=== PATIENT | female | born 1980 | race Two or more races ===

== ENCOUNTER 2022-04-14 21:46 | Observation (INO) ==
--- NOTE | 2022-04-14 22:19 | Emergency Department Note ---
Impression & Plan Chest pain, CAD (coronary artery disease) ED Provider Note NAME: DHRUV ARMANDO AGE: 41 SEX: F : 1980 ARRIVES VIA: Walk-In INFORMANT: Patient ED PROVIDER(S): Vern Edwards DO CHIEF COMPLAINT: Chest pain HPI: Patient is a 41-year-old female who presents ER for chest pain. She notes she was sitting in the car and started getting pinching pain in her left upper chest. She denies any shortness of breath. No arm or jaw pain. She notes this feels similar to her previous MD which was back in December 2021 where she had a stent placed in her LAD. She was on Brilinta and then switched to Plavix which she has been taking. Her pain has abated but was waxing and waning when present. It started at 745 and lasted for about half hour. She notes no belly pain, nausea, vomiting, or diarrhea. No dysuria, urgency, or frequency. She questions if this is musculoskeletal but notes that did not change with twisting, turning, bending, or movement or pushing on her chest wall. He did take multiple doses of Lopressor to slow her heart rate down. ROS: See above HPI for pertinent positives & negatives. A total of 10 systems reviewed and were otherwise negative. PAST MEDICAL HISTORY:See Below PAST SURGICAL HISTORY:See Below FAMILY HISTORY:See Below SOCIAL HISTORY:See Below HOME MEDICATIONS:See Below ALLERGIES:See Below VITALS:See Below PHYSICAL EXAMINATION: GENERAL: Sitting up in bed, alert, well appearing, well nourished, no distress, non-toxic EYE EXAM: normal conjunctiva. OROPHARYNX: no exudate, no erythema, lips, buccal mucosa, and tongue normal and mucous membranes are moist NECK: supple, no nuchal rigidity, no adenopathy, non-tender LUNGS: Clear to auscultation. Normal chest wall mechanics HEART: no murmurs, S1 normal and S2 normal ABDOMEN: abdomen soft, non-tender, normo-active bowel sounds, no masses, no rebound or guarding. UPPER EXTREMITIES: upper extremities are grossly normal. LOWER EXTREMITIES: No pitting edema. Calves are equal bilateral. NEURO EXAM: Normal sensorium, cranial nerves II-XII grossly intact, normal speech, no gross weakness of arms, no gross weakness of legs. MEDICAL DECISION MAKING: Patient is a 41-year-old female who presents the ER with a past medical history of CAD and a stent placed in her LAD secondary to an MD back in December for chest pain over the left chest. Symptoms were waxing and waning for about 1/2-hour and have resolved. She notes this felt similar to her previous MD. Labs show no significant leukocytosis or anemia. BMP with a mild hyponatremia at 134. LFTs bilirubin was unremarkable. Lipase normal. Troponin negative. COVID- negative. Chest x-ray was clean. Patient was updated bedside. She was given aspirin. She currently pain-free. Due to her history of a recent MD with a stent in her LAD Case was discussed with Fartun Navarro for further evaluation. Triage Nursing notes reviewed. Limited review of prior medical records performed Vital Signs: reviewed and remarkable for HTN Differential diagnosis: Cardiac ischemia, aortic dissection, pulmonary embolism, pneumothorax, pneumonia, pericarditis, myocarditis, esophageal rupture, GERD, cholecystitis, pancreatitis, musculoskeletal, as well as other pathologies. ER treatment provided: See below Diagnostics interpreted by me: ECG: Sinus rhythm rate 85 Normal axis No PVCs QTC 435 Cardiac Monitoring: An order was placed for continuous cardiac monitoring. The monitor shows a rate of 80 with sinus rhythm. Laboratory studies: As stated above and show below. Imaging studies: Portable AP upright 1 view of the chest was unremarkable Consultation(s): none Procedures: none Critical Care: None Past Med/Surg History Social History Smoking Status: Never smoker Feels Safe at Home: Yes Allergies Allergies Allergy/AdvReac Type Severity Reaction Status Date / Time levonorgestrel [From Mirena] Allergy Intermediate Hives Verified 04/14/22 23:39 cherries Allergy Mild itchy Uncoded 04/14/22 23:39 mouth and throat Home Meds Home Medications Medication Instructions Recorded Confirmed aspirin 81 mg tablet,delayed 81 mg PO QAM 04/14/22 04/14/22 release clopidogrel 75 mg tablet 75 mg PO QAM 04/14/22 04/14/22 metoprolol succinate 25 mg 25 mg PO DAILY 04/14/22 04/14/22 tablet,extended release 24 hr rosuvastatin 20 mg tablet 20 mg PO QPM 04/14/22 04/14/22 Results & Data (ED) Vital Signs Vital Signs - 24 hr 04/14/22 21:51 04/14/22 22:43 04/14/22 22:34 Temperature 36.8 C Temperature Source Temporal Artery Scan Pulse Rate 80 77 Pulse Rate from SpO2 Sensor 78 Respiratory Rate 20 18 22 Respiratory Effort / Characteristics Non-Labored Spontaneous Respiratory Depth Normal Blood Pressure 160/106 H 135/76 Blood Pressure Mean 124 95 Blood Pressure Position Lying Pulse Oximetry 100 99 100 Oxygen Delivery Method Room Air Room Air Room Air Sepsis Recent Fever Within 48 Hours No Sepsis New/Unexplained Change in Mental Status No Sepsis Action Taken by Nursing No Action Required Laboratory Data Result diagrams: 04/14/22 22:23 04/14/22 22:23 Lab Results 04/14/22 04/14/22 04/14/22 Range/Units 22:23 22:23 22:25 WBC 10.58 (4.8-10.8) K/ul RBC 4.34 (3.93-5.22) M/uL Hgb 13.2 (12.0-16.0) g/dl Hct 38.6 (34.1-44.9) % MCV 88.9 (80.0-100.0) fL MCH 30.4 (25.0-34.0) pg MCHC 34.2 (32.0-36.0) g/dL RDW Std Deviation 42.0 (36.4-46.3) fL RDW Coeff of Tova 12.8 (11.5-14.5) % Plt Count 285 (130-400) K/uL MPV 9.6 (9.4-12.3) fL Immature Gran % (Auto) 0.2 % Neut % (Auto) 78.5 % Lymph % (Auto) 13.7 % [place] % (Auto) 5.9 % Eos % (Auto) 1.0 % Baso % (Auto) 0.7 % Neut # (Auto) 8.31 H (1.4-6.5) K/uL Lymph # (Auto) 1.45 (1.2-3.4) K/uL [place] # (Auto) 0.62 (0.24-0.82) K/uL Eos # (Auto) 0.11 (0-0.50) K/uL Baso # (Auto) 0.07 (0-0.2) K/uL Immature Gran # (Auto) 0.02 (0.00-0.02) K/uL Sodium 134 L (136-145) mmol/L Potassium 3.6 (3.5-5.1) mmol/L Chloride 103 (98-107) mmol/L Carbon Dioxide 23 (21-32) mmol/L Anion Gap 8 (3-11) BUN 16 (6-23) mg/dl Creatinine 0.64 (0.6-1.2) mg/dl Est Cr Clr Drug Dosing 103.9 ml/min Est GFR ( Amer) 128.5 ml/min Est GFR (Non-Af Amer) 110.8 ml/min BUN/Creatinine Ratio 25.0 H (10-20) Glucose 109 H (70-99(Fasting)) mg/dl Calcium 9.8 (8.5-10.1) mg/dl Total Bilirubin 0.4 (0.2-1.0) mg/dl AST 23 (13-39) U/L ALT 24 (7-52) U/L Alkaline Phosphatase 46 (34-104) U/L Troponin I High Sens 2.8 (0-14) pg/ml Total Protein 7.8 (6.0-8.3) gm/dl Albumin 4.7 (3.4-5.0) gm/dl Globulin 3.1 (2.5-4.0) gm/dl Albumin/Globulin Ratio 1.5 (0.9-2) Lipase 36 (11-82) U/L SARS-CoV-2, RNA, NAAT NEGATIVE (NEGATIVE) Imaging Data Radiologist's Impression: Chest X-Ray 04/14/22 21:59 SINGLE VIEW CHEST CLINICAL HISTORY: Atypical chest pain. FINDINGS: An AP, portable, upright chest radiograph is obtained. No prior studies are available for comparison at the time of dictation. The cardiomediastinal silhouette is unremarkable. The lungs and pleural spaces are clear. No pneumothorax is seen. The bony thorax is grossly intact. IMPRESSION: No active disease in the chest. ACT 112: Negative or not required by law. Electronically signed by: Miguel Orellana M.D. 04/14/2022 11:25 PM Discharge Plan Visit Data Chief Complaint: Chest Pain Stated Complaint: CHEST PAIN, TIGHTNESS ED Provider: Vern Edwards Discharge Problem: Chest pain, CAD (coronary artery disease) Forms Stand Alone Forms: My [facility] Prescriptions Prescriptions: No Action clopidogrel 75 mg tablet 75 mg PO QAM aspirin 81 mg tablet,delayed release (DR/EC) 81 mg PO QAM metoprolol succinate 25 mg tablet extended release 24 hr 25 mg PO DAILY Rx Instructions: ordered daily but pt states she uses it as needed for high BP or fast Heart rate and claims she took it 3 times yesterday rosuvastatin 20 mg tablet 20 mg PO QPM Referrals Referrals: PCP,NO [Primary Care Provider] -
[2022-04-14 22:44] LABS: Basophils # (auto) 0.07 K/uL (0-0.2); Basophils % (auto) 0.7 %; Eosinophils # (auto) 0.11 K/uL (0-0.50); Hematocrit (blood only) 38.6 % (34.1-44.9); Hemoglobin 13.2 g/dl (12.0-16.0); Immature Granulocytes # (auto) 0.02 K/uL (0.00-0.02); Immature Granulocytes % (auto) 0.2 %; Lymphocytes # (auto) 1.45 K/uL (1.2-3.4); Lymphocytes % (auto) 13.7 %; Mean Corpuscular Hemoglobin 30.4 pg (25.0-34.0); Mean Corpuscular Hgb Conc 34.2 g/dL (32.0-36.0); Mean Corpuscular Volume 88.9 fL (80.0-100.0); Mean Platelet Volume 9.6 fL (9.4-12.3); Monocytes # (auto) 0.62 K/uL (0.24-0.82); Monocytes % (auto) 5.9 %; Neutrophils # (auto) 8.31 K/uL (1.4-6.5); Neutrophils % (auto) 78.5 %; Platelet Count 285 K/uL (130-400); RDW Coefficient of Variation 12.8 % (11.5-14.5); Red Blood Count 4.34 M/uL (3.93-5.22); White Blood Count 10.58 K/ul (4.8-10.8)
[2022-04-14 23:09] LABS: Albumin Globulin Ratio 1.5 (0.9-2); Albumin Level 4.7 gm/dl (3.4-5.0); Bilirubin,Total 0.4 mg/dl (0.2-1.0); Calcium 9.8 mg/dl (8.5-10.1); Creatinine Clr Calc Pharmacy 103.9 ml/min; Est GFR (African American) 128.5 ml/min; Est GFR (Non-African American) 110.8 ml/min; Globulin 3.1 gm/dl (2.5-4.0); Potassium 3.6 mmol/L (3.5-5.1); Total Protein 7.8 gm/dl (6.0-8.3)
[2022-04-14 23:13] LABS: Troponin I High Sensitivity 2.8 pg/ml (0-14)
--- NOTE | 2022-04-14 23:26 | XRay Report ---
SINGLE VIEW CHEST CLINICAL HISTORY: Atypical chest pain. FINDINGS: An AP, portable, upright chest radiograph is obtained. No prior studies are available for c omparison at the time of dictation. The cardiomediastinal silhouette is unremarkable. The lungs and p leural spaces are clear. No pneumothorax is seen. The bony thorax is grossly intact. IMPRESSION: No active disease in the chest. ACT 112: Negative or not required by law. Electronically signed by: Miguel Orellana M.D. 04/14/2022 11:25 PM
--- NOTE | 2022-04-15 00:20 | History & Physical Report ---
Date of Service April 15, 2022 Assessment & Plan (1) Chest pain: Plan: 41yo female with history of CAD s/p stent placement to LAD on December 17, 2021 on DAPT with ASA and Plavix presenting with acute left sided chest pain that started this evening around 19:00. Pain lasted approximately 30 minutes. Radiation to the left arm and chills. Non-pleuritic, non-exertional, non- reproducible. EKG in the ER with no acute ischemic changes HS-troponin x 1 within normal limits at 2.8 Chest pain has resolved Atypical presentation, however, given patient's history of premature CAD with recent stent placement will observe overnight -Observation to medical with telemetry -Repeat HS-troponin now and q 6 hours x 2 -Continue ASA, Plavix, Metoprolol and Crestor -Cardiology consultation appreciated (2) CAD (coronary artery disease): Plan: Patient with CAD s/p NV with cardiac catheterization with stent placement to LAD. No known risk factors for CAD. -Request records from prior hospitalization -Continue ASA -Continue Plavix -Continue Crestor -Continue Metoprolol - Cardiology consultation appreciated History of Present Illness Chief Complaint: chest pain Primary Care Provider: NO PCP Cassy Hollidayleroy is a 41yo female with history of CAD s/p NV in November 2021 with stent placement to LAD performed in [place], [place]. Patient is on ASA, Plavix and Crestor daily and takes Metoprolol PRN for elevated heart rate. She is compliant with her medications. She was recently in [place] with her family for vacation and was driving back home to [place] when she developed left sided chest pain. The pain was located on the left side, squeezing pressure with radiation. She had some associated chills as well. She denies diaphoresis or SOB. She did start to feel anxious with the discomfort and her heart rate increased. She does monitor her heart rate and blood pressure regularly - HR was in the 130's and blood pressure was 136/86. Over the course of approximately 1.5 hours she took Metoprolol 25mg tablet x 3 (75mg total) for her elevated heart rate. The discomfort persisted appx 30 minutes then resolved. They stopped for gas and she walked around a little bit and had persistence of the chest pain but no worsening with exertion. Pain not reproducible. Patient is active. She has no history of HTN, HLP or DM. She does not smoke or use tobacco products. Her brother has a history of an aortic aneurysm but otherwise no family history of premature CAD. She exercises regularly and maintains a healthy weight. In November 2021 she began having dyspnea with exertion as well as exertional chest discomfort. Her symptoms persisted approximately 1 week before she was seen by a Boat Hoist Operator at [facility] in [place], [place]. Workup revealed increase in cardiac enzymes. She was transferred to a facility in [place], [place] and had a cardiac catheterization with stent placement. No clear reason why she has CAD. She reports no failure on her followup echocardiogram. She was active while in [place] and did bike riding and participated in a family relay. She had no exertional symptoms. She is afebrile, mildly hypertensive in the ER. Chest pain free ER Course: no medications administered Allergies Allergy/AdvReac Type Severity Reaction Status Date / Time levonorgestrel [From Mirena] Allergy Intermediate Hives Verified 04/14/22 23:39 cherries Allergy Mild itchy Uncoded 04/14/22 23:39 mouth and throat Home Medications Medication Instructions Recorded Confirmed Type aspirin 81 mg tablet,delayed 81 mg PO QAM 04/14/22 04/14/22 History release clopidogrel 75 mg tablet 75 mg PO QAM 04/14/22 04/14/22 History metoprolol succinate 25 mg 25 mg PO DAILY 04/14/22 04/14/22 History tablet,extended release 24 hr rosuvastatin 20 mg tablet 20 mg PO QPM 04/14/22 04/14/22 History Past Med/Surg History Medical History (Updated 04/15/22 @ 00:31 by Nica Navarro DO) CAD (coronary artery disease) History of placement of stent in LAD coronary artery Surgical History (Updated 04/15/22 @ 00:31 by Nica Navarro DO) No significant past surgical history Family History (Updated 04/15/22 @ 00:31 by Nica Navarro DO) Other Aortic aneurysm Social History (Updated 04/15/22 @ 00:31 by Nica Navarro DO) Smoking Status: Never smoker Hx Alcohol Use: Yes (social use) Hx Substance Use: No Feels Safe at Home: Yes Review of Systems Review of Systems: All systems reviewed & are unremarkable except as noted in HPI & below Physical Exam Physical Exam: General: patient resting comfortably, NAD, non-toxic in appearance, AA&O x 4 Skin: warm, dry, intact, no rashes or lesions HEENT: NC/AT, PERRL, EOMI, anicteric sclera, conjunctiva without injection, external ear normal to inspection and nontender, nares patent, moist mucus membranes, dentition intact, no oropharyngeal lesions, neck supple, trachea midline, no LAD, no thyromegaly, no JVD Heart: +S1/S2, regular, no m/r/g Lungs: equal air entry bilaterally, no rales/rhonchi/wheezes Abd: +BS, soft, NT/ND, no masses/organomegaly/ascites Ext: warm, 2+ pulses in UE/LE bilaterally, no clubbing/cyanosis or edema Neuro: nonfocal, patient AA&O x 4, speech intact, no facial droop, moving all extremities on command with equal strength 5/5 Results & Data Results & Data ([facility]) Vital Signs (Past 12 Hours) Vital Signs Temp Pulse Resp BP Pulse Ox O2 Del Method 04/15/22 00:06 74 16 144/88 H 99 Room Air 04/14/22 22:34 77 22 135/76 100 Room Air 04/14/22 22:43 80 18 99 Room Air 04/14/22 21:51 36.8 C 20 160/106 H 100 Room Air Laboratory Results Laboratory Results WBC 10.58 K/ul (4.8-10.8) 04/14/22 22:23 RBC 4.34 M/uL (3.93-5.22) 04/14/22 22:23 Hgb 13.2 g/dl (12.0-16.0) 04/14/22 22:23 Hct 38.6 % (34.1-44.9) 04/14/22 22: MCV 88.9 fL (80.0-100.0) 04/14/22 22: MCH 30.4 pg (25.0-34.0) 04/14/22 22: MCHC 34.2 g/dL (32.0-36.0) 04/14/22 22: RDW Std Deviation 42.0 fL (36.4-46.3) 04/14/22: RDW Coeff of Tova 12.8 % (11.5-14.5) 04/14/22 22: Plt Count 285 K/uL (130-400) 04/14/22 22: MPV 9.6 fL (9.4-12.3) 04/14/22 22: Immature Gran % (Auto) 0.2 % 04/14/22 22: Neut % (Auto) 78.5 % 04/14/22 22: Lymph % (Auto) 13.7 % 04/14/22 22: [place] % (Auto) 5.9 % 04/14/22 22: Eos % (Auto) 1.0 % 04/14/22 22:23 Baso % (Auto) 0.7 % 04/14/22 22: Neut # (Auto) 8.31 K/uL (1.4-6.5) H 04/14/22 22: Lymph # (Auto) 1.45 K/uL (1.2-3.4) 04/14/22 22: [place] # (Auto) 0.62 K/uL (0.24-0.82) 04/14/22 22: Eos # (Auto) 0.11 K/uL (0-0.50) 04/14/22 22: Baso # (Auto) 0.07 K/uL (0-0.2) 04/14/22 22: Immature Gran # (Auto) 0.02 K/uL (0.00-0.02) 04/14/22 22: Sodium 134 mmol/L (136-145) L 04/14/22 22: Potassium 3.6 mmol/L (3.5-5.1) 04/14/22 22: Chloride 103 mmol/L (98-107) 04/14/22 22: Carbon Dioxide 23 mmol/L (21-32) 04/14/22 22: Anion Gap 8 (3-11) 04/14/22 22: BUN 16 mg/dl (6-23) 04/14/22 22: Creatinine 0.64 mg/dl (0.6-1.2) 04/14/22 22: Est Cr Clr Drug Dosing 103.9 ml/min 04/14/22 22: Est GFR ( Amer) 128.5 ml/min 04/14/22 22:23 Est GFR (Non-Af Amer) 110.8 ml/min 04/14/22 22:23 BUN/Creatinine Ratio 25.0 (10-20) H 04/14/22 22:23 Glucose 109 mg/dl (70-99(Fasting)) H 04/14/22 22:23 Calcium 9.8 mg/dl (8.5-10.1) 04/14/22 22:23 Total Bilirubin 0.4 mg/dl (0.2-1.0) 04/14/22 22:23 AST 23 U/L (13-39) 04/14/22 22:23 ALT 24 U/L (7-52) 04/14/22 22:23 Alkaline Phosphatase 46 U/L (34-104) 04/14/22 22:23 Troponin I High Sens 2.8 pg/ml (0-14) 04/14/22 22:23 Total Protein 7.8 gm/dl (6.0-8.3) 04/14/22 22:23 Albumin 4.7 gm/dl (3.4-5.0) 04/14/22 22:23 Globulin 3.1 gm/dl (2.5-4.0) 04/14/22 22:23 Albumin/Globulin Ratio 1.5 (0.9-2) 04/14/22 22:23 Lipase 36 U/L (11-82) 04/14/22 22:23 SARS-CoV-2, RNA, NAAT NEGATIVE (NEGATIVE) 04/14/22 22:25 Impressions Chest X-Ray 04/14/22 21:59 SINGLE VIEW CHEST CLINICAL HISTORY: Atypical chest pain. FINDINGS: An AP, portable, upright chest radiograph is obtained. No prior studies are available for comparison at the time of dictation. The cardiomediastinal silhouette is unremarkable. The lungs and pleural spaces are clear. No pneumothorax is seen. The bony thorax is grossly intact. IMPRESSION: No active disease in the chest. ACT 112: Negative or not required by law. Electronically signed by: Miguel Orellana M.D. 04/14/2022 11:25 PM ECG Additional Comments: EKG with NSR at 85, normal axis, IT=849, QRS=86, EVy=513, no acute ischemic changes PG Care Time/CCT Total # of Minutes Spent Total Time Spent with Patient: Total time spent is greater than 50% in coordination of care (as documented) at patient's floor/unit and/or counseling patient: Coding Level of Care Code INT OBSERVATION CARE 50M LVL 2 Diagnoses Chest pain R07.9 CAD (coronary artery disease) I25.10
[2022-04-15] MEDS ORDERED: NITROGLYCERIN SL 0.4 MG/TAB TAB SL PRN (02:26)
[2022-04-15] MEDS ORDERED: ONDANSETRON INJ 2 MG/ML 2 ML VIAL IV PRN (02:26)
[2022-04-15] MEDS ORDERED: ACETAMINOPHEN 325 MG TAB PO PRN (02:26)
[2022-04-15] MEDS ORDERED: METOPROLOL SUCC 25MG EXT REL TAB PO SCH (09:00)
[2022-04-15] MEDS ORDERED: CLOPIDOGREL BISULFATE 75 MG TAB PO SCH (09:00)
[2022-04-15] MEDS ORDERED: ASPIRIN 81 MG ECTAB PO SCH (09:00)
--- NOTE | 2022-04-15 10:53 | Cardiology Consultation ---
Date of Consultation April 15, 2022 Assessment & Plan (1) Chest pain: (2) CAD (coronary artery disease): Plan 1. Chest pain: She had about a half an hour of chest discomfort, with that duration of chest discomfort due to coronary artery disease 1 would expect a positive troponin and probably electrocardiographic changes. She has had neither. In addition this discomfort was quite different than what she experienced prior to her documented coronary disease and stent, that was exertional and she has not had recurrence of that discomfort. I do not suspect that this is cardiac and I would not recommend any further evaluation at this time. 2. Coronary disease: She has known coronary disease and had stent placement about 3 months ago. I do not suspect progression as a cause of her current symptoms and I would not pursue further evaluation. History of Present Illness Reason for Consultation: Chest pain Attending Physician: Juanito Muñoz, DO History of Present Illness This is a 41-year-old woman who had a stent placement to the LAD on December 17, 2021 at an outside institution. She has been on aspirin and Plavix and was in the area on April 14, 2022 when she developed substernal chest discomfort with radiation to her left arm. It was not exertional. It lasted about half an hour before resolving. Initial evaluation included an electrocardiogram which showed sinus rhythm at 85 bpm and is a normal electrocardiogram. Troponin measurements were performed on presentation on April 14, 2022 at 2223 and was 2.8, about 4 hours later the level was 2.9 and about 3 and half hours after that the level was 2.8. On discussing her symptoms she had a nagging type left-sided chest discomfort which worried her and came and went for about half an hour. It was not exertional, he was not related to arm movement. In contrast her symptoms prior to her recent stent were exertional chest tightness which she relates to the precordial area and occurred with walking up hills and was relieved with rest and is quite different than what she experienced yesterday. She has not had difficulty with chest discomfort following admission. Allergies Allergy/AdvReac Type Severity Reaction Status Date / Time levonorgestrel [From Mirena] Allergy Intermediate Hives Verified 04/14/22 23:39 lacey Allergy Mild itchy Verified 04/15/22 02:37 mouth and throat Home Medications Medication Instructions Recorded Confirmed Type aspirin 81 mg tablet,delayed 81 mg PO QAM 04/14/22 04/14/22 History release clopidogrel 75 mg tablet 75 mg PO QAM 04/14/22 04/14/22 History metoprolol succinate 25 mg 25 mg PO DAILY 04/14/22 04/14/22 History tablet,extended release 24 hr rosuvastatin 20 mg tablet 20 mg PO QPM 04/14/22 04/14/22 History Patient History Medical History CAD (coronary artery disease) History of placement of stent in LAD coronary artery Surgical History No significant past surgical history Family History Other Aortic aneurysm Social History Smoking Status: Former smoker Cigarettes Per Day: occ; Smoking End Date: 2001; Second Hand Exposure: No; Tobacco Cessation Education Requested by Patient: No Hx Alcohol Use: Yes Alcohol type: wine Hx Substance Use: No Preferred Language: Polish Communication Ability: Effective Java Websphere Developer Required: No Beliefs That Will Affect Care: None Current Living Situation: Spouse Current Living Situation Comment: lives with and two kids Other Information That Helps Us Care for You: No Feels Safe at Home: Yes Safety Concerns: Feels Safe At This Time Assistive Devices: None Review of Systems Review of Systems: All systems reviewed & are unremarkable except as noted in HPI & below Physical Exam Physical Exam: Constitutional: Alert, cooperative and in no distress. HEENT: Unremarkable Neck: No jugular venous distention, carotid pulses are normal and equal bilaterally without bruits. Pulmonary: Clear to auscultation bilaterally. Cardiac: Regular rhythm with no murmur, gallop or rub. Abdomen: Soft, nontender with normal bowel sounds. Extremities: No edema. Distal pulses intact. Neurologic: No focal findings. Gait is steady. Skin: No rash, ecchymoses or petechiae. Results & Data ([facility]) Vital Signs (Past 12 Hours) Vital Signs Temp Pulse Pulse Resp BP BP Pulse Ox 04/15/22 08:00 76 04/15/22 08:12 36.8 C 73 17 101/68 99 04/15/22 02:25 76 04/15/22 02:25 36.7 C 20 130/80 99 04/15/22 01:00 78 16 100 04/15/22 01:00 128/86 04/15/22 00:30 75 16 98 04/15/22 00:30 115/77 04/15/22 00:06 74 16 144/88 H 99 O2 Del Method 04/15/22 08:00 04/15/22 08:12 Room Air 04/15/22 02:25 04/15/22 02:25 Room Air 04/15/22 01:00 04/15/22 01:00 04/15/22 00:30 04/15/22 00:30 04/15/22 00:06 Room Air Laboratory Results Cardiac Enzymes 04/14/22 04/15/22 04/15/22 Range/Units 22:23 02:40 06:11 AST 23 (13-39) U/L Troponin I High Sens 2.8 2.9 2.8 (0-14) pg/ml CBC 04/14/22 Range/Units 22:23 WBC 10.58 (4.8-10.8) K/ul RBC 4.34 (3.93-5.22) M/uL Hgb 13.2 (12.0-16.0) g/dl Hct 38.6 (34.1-44.9) % Plt Count 285 (130-400) K/uL Neut # (Auto) 8.31 H (1.4-6.5) K/uL Lymph # (Auto) 1.45 (1.2-3.4) K/uL [place] # (Auto) 0.62 (0.24-0.82) K/uL Eos # (Auto) 0.11 (0-0.50) K/uL Baso # (Auto) 0.07 (0-0.2) K/uL Comprehensive Metabolic Panel 04/14/22 Range/Units 22:23 Sodium 134 L (136-145) mmol/L Potassium 3.6 (3.5-5.1) mmol/L Chloride 103 (98-107) mmol/L Carbon Dioxide 23 (21-32) mmol/L BUN 16 (6-23) mg/dl Creatinine 0.64 (0.6-1.2) mg/dl Glucose 109 H (70-99(Fasting)) mg/dl Calcium 9.8 (8.5-10.1) mg/dl AST 23 (13-39) U/L ALT 24 (7-52) U/L Alkaline Phosphatase 46 (34-104) U/L Total Protein 7.8 (6.0-8.3) gm/dl Albumin 4.7 (3.4-5.0) gm/dl Intake and Output 04/14/22 04/15/22 04/15/22 22:59 06:59 14:59 Other: Weight 56.9 kg 55.4 kg Weight Measurement Method Standing Scale Diagnostic Findings An electrocardiogram today shows sinus rhythm with no ischemic changes. PG Care Time/CCT Total # of Minutes Spent Total Time Spent with Patient: Total time spent is greater than 50% in coordination of care (as documented) at patient's floor/unit and/or counseling patient: Coding Level of Care Code 33115 Inpt Consult Level 4 Diagnoses Chest pain R07.2 Chest pain type: precordial pain CAD (coronary artery disease) I25.10 Associated angina: without angina Coronary Disease-Associated Artery/Lesion type: [place] artery [place] vs. transplanted heart: [place] heart (1) CAD (coronary artery disease) Associated angina: without angina Coronary Disease-Associated Artery/Lesion type: [place] artery [place] vs. transplanted heart: [place] heart Qualified Code(s): I25.10 - Atherosclerotic heart disease of [place] coronary artery without angina pectoris (2) Chest pain Chest pain type: precordial pain Qualified Code(s): R07.2 - Precordial pain
--- NOTE | 2022-04-15 12:54 | Discharge Summary ---
Date of Service April 15, 2022 Admission HPI Per Admitting Provider Cassy Casey is a 41yo female with history of CAD s/p OK in November 2021 with stent placement to LAD performed in [place], [place]. Patient is on ASA, Plavix and Crestor daily and takes Metoprolol PRN for elevated heart rate. She is compliant with her medications. She was recently in [place] with her family for vacation and was driving back home to [place] when she developed left sided chest pain. The pain was located on the left side, squeezing pressure with radiation. She had some associated chills as well. She denies diaphoresis or SOB. She did start to feel anxious with the discomfort and her heart rate increased. She does monitor her heart rate and blood pressure regularly - HR was in the 130's and blood pressure was 136/86. Over the course of approximately 1.5 hours she took Metoprolol 25mg tablet x 3 (75mg total) for her elevated heart rate. The discomfort persisted appx 30 minutes then resolved. They stopped for gas and she walked around a little bit and had persistence of the chest pain but no worsening with exertion. Pain not reproducible. Patient is active. She has no history of HTN, HLP or DM. She does not smoke or use tobacco products. Her brother has a history of an aortic aneurysm but otherwise no family history of premature CAD. She exercises regularly and maintains a healthy weight. In November 2021 she began having dyspnea with exertion as well as exertional chest discomfort. Her symptoms persisted approximately 1 week before she was seen by a Appraisal Coordinator at [facility] in [place], [place]. Workup revealed increase in cardiac enzymes. She was transferred to a facility in [place], [place] and had a cardiac catheterization with stent placement. No clear reason why she has CAD. She reports no failure on her followup echocardiogram. She was active while in [place] and did bike riding and participated in a family relay. She had no exertional symptoms. She is afebrile, mildly hypertensive in the ER. Chest pain free ER Course: no medications administered Discharge Data Consultations 04/15/22 00:22 Consult Cardiology Routine Procedures Performed None Hospital Course (1) CAD (coronary artery disease): (2) Chest pain: Plan The patient was observed on the telemetry floor. Serial high sensitive troponin I were 2.8, 2.9, 2.8 respectively. She had no recurrence of the chest pain or tachycardia after admission. On the morning after her admission, the patient was seen and evaluated by cardiology. With her reassuring EKGs and negative cardiac biomarkers, the thought was that her chest pain was of noncardiac origin. Discussed signs and symptoms of acute coronary syndrome; she will seek emergency medical care should these occur. She and her family will be returning to their home in [place] today. On the morning after admission, she was without complaints. Denies any chest pain or shortness of breath. In talking this morning, she wonders if she did not strain her arm[facility]shoulder [facility] who were traveling with them. As noted in the HPI, she and her family are returning from a trip to visit relatives in [place]. EXAM 108/68, 73, 36.8, 99% on room air Heart regular rate and rhythm. She does have some mild tenderness with palpation, anterior left chest wall to the anterior left shoulder. Lungs are clear throughout with nonlabored respirations Discharge Instructions 1) follow-up with PCP and/or cardiology upon return to [place]. 2) seek immediate medical attention should you develop any chest pain, shortness of breath, or tachycardia.
--- NOTE | 2022-04-15 20:31 | Electrocardiogram Report ---
Test Reason : Blood Pressure : / mmHG Vent. Rate : 085 BPM Atrial Rate : 085 BPM P-R Int : 116 ms QRS Dur : 086 ms QT Int : 366 ms P-R-T Axes : 065 081 037 degrees QTc Int : 435 ms Normal sinus rhythm Normal ECG No previous ECGs available Confirmed by Akil Wilson ([id number]) on 04/15/2022 8:31:08 PM Referred By: REFERRED SELF Confirmed By:Akil Wilson
--- NOTE | 2022-04-15 20:58 | Electrocardiogram Report ---
Test Reason : Blood Pressure : / mmHG Vent. Rate : 072 BPM Atrial Rate : 072 BPM P-R Int : 114 ms QRS Dur : 086 ms QT Int : 400 ms P-R-T Axes : 072 079 052 degrees QTc Int : 438 ms Normal sinus rhythm Normal ECG When compared with ECG of 14-APR-2022 21:55, (unconfirmed) T wave inversion less evident in Anterior leads Confirmed by Akil Wilson ([id number] on 04/15/2022 8:58:22 PM Referred By: REFERRED SELF Confirmed By:Akil Wilson
[2022-04-15] MEDS ORDERED: ROSUVASTATIN CALCIUM 20 MG TAB PO SCH (21:00)
== END 2022-04-15 13:12 | disposition home or self-care (01) ==
LOC: 2N 21:46 → ED 21:46 → SUATTDRO 04-15 00:17 → 2N 04-15 01:28